=== PATIENT | male | born 1970 | race Caucasian/White ===

== ENCOUNTER 2018-01-17 03:44 | Inpatient (IN) | payer OTHER ==
[~2018-01-17] VITALS: Ht 185.4 cm; Wt 108.5 kg
[~2018-01-17 03:44] MED LIST: ST. JOSEPH ASPI81 M1 PO
--- NOTE | 2018-01-17 12:51 | Admission Core Measures ---
Acute Coronary Syndrome (CM) ACS Core Measures Acute Coronary Syndrome Diagnosis No Congestive Heart Failure (NEW) CHF Core Measures Congestive Heart Failure Diagnosis No Cerebrovascular Accident CVA Core Measures CVA/TIA Diagnosis No Venous Thromboembolism VTE Core Curry (View Protocol) VTE Risk Factors Surgery No Mechanical VTE Prophylaxis d/t N/A MechProphylax Ordered No VTE Pharm Prophylaxis d/t NA PharmProphylax ordered Problem List As ranked by this Provider includes Assessment & Plan 1. Unilateral primary osteoarthritis, right knee HOME MEDS Home Med List Aspirin (Cochran Aspirin) 81 MG TABLET.DR 1 TAB PO DAILY [facility] ( Reported)
[2018-01-17] MEDS ORDERED: ASPIRIN EC325 M2 PO (12:54)
[2018-01-17] MEDS ORDERED: COLACE100 M1 PO (12:54)
[2018-01-17] MEDS ORDERED: MIRALAX17 G1 PO (12:54)
[2018-01-17] MEDS ORDERED: MS CONTIN15 M3 PO (12:54)
[2018-01-17] MEDS ORDERED: DILAUDID2 M1 PO (12:54)
[2018-01-17] MEDS ORDERED: PRILOSEC OTC20 M1 PO (12:54)
--- NOTE | 2018-01-17 12:56 | Patient Discharge Instructions ---
Discharge Instructions General Discharge Information You were seen/treated for: Right knee pain related to unilateral primary osteoarthritis You had these procedures: Right total knee replacement Watch for these problems: Increasing pain despite the use of pain medication Increasing redness, warmth or swelling Drainage of any type from incision Inability to bear weight on operative leg Persistent nausea and vomiting Fever greater than 101.5 degrees Do not soak the wound: Yes No bath, but you may shower: Yes Other wound care: Please keep wound clean and dry. No ointments or lotions of any type on or near incision at any time. No exceptions. Your dressing will be changed by your nurse on the second day after your surgery. Daily dry dressing changes are recommended each day thereafter. Do not soak your wound in a bath or pool at any time until otherwise indicated by your surgeon. You may shower, please dry wound immediately after shower with a clean towel. Special Instructions: Aspirin: You are taking this medication to help prevent blood clot formation. Please take with food to protect your stomach lining. Please take as directed. Constipation: Pain medication can cause constipation. Your surgeon has recommended that you take Colace and miralax each day. You may discontinue this medication if you develop loose stool or diarrhea. If you wish to continue this medication, it is available over the counter. If you are unable to move your bowels after several days, if you are unable to pass gas and are developing bloating, nausea, or vomiting as a result, please contact your doctor. Diet Continue normal diet: Yes Recommended Diet: Regular Acute Coronary Syndrome Inclusion Criteria At DC or during hospital stay patient has or had the following: ACS DIAGNOSIS No Discharge Core Measures Meds if any: Prescribed or Continued at Discharge Meds if any: NOT Prescribed or Continued at Discharge Congestive Heart Failure Inclusion Criteria At DC or during hospital stay patient has or had the following: CHF DIAGNOSIS No Discharge Core Measures Meds if any: Prescribed or Continued at Discharge Meds if any: NOT Prescribed or Continued at Discharge Cerebrovascular accident Inclusion Criteria At DC or during hospital stay patient has or had the following: CVA/TIA Diagnosis No Discharge Core Measures Meds if any: Prescribed or Continued at Discharge Meds if any: NOT Prescribed or Continued at Discharge Venous thromboembolism Inclusion Criteria VTE Diagnosis No VTE Type NONE VTE Confirmed by (Test) NONE Discharge Core Measures - Per Current guidelines, there needs to be overlap - treatment for the first 5 days of Warfarin therapy. - If discharged on Warfarin prior to 5 days of - overlap therapy, the patient will need to be - assessed for post discharge needs including - *Post discharge parental anticoagulation - *Warfarin and/or parental anticoagulation education - *Follow up date to check INR post discharge At least 5 days overlap therapy as Inpatient No Meds if any: Prescribed or Continued at Discharge Note: Overlap Therapy is Warfarin and Anticoagulant Meds if any: NOT Prescribed or Continued at Discharge
--- NOTE | 2018-01-17 12:58 | Surgical Discharge Summary ---
Visit Information Visit Dates Admission Date: 01/17/18 Discharge Date: 01/19/18 History of Present Illness Chief Complaint: Right knee pain related to unilateral primary osteoarthritis Surgical History Pertinent Surgical History: non-contributory Review of Systems: See H&P Hospital Course Course Attending Physician: Kirby Gorman MD Primary Care Physician: Unknown Hospital Course: Patient was admitted to the hospital for an elective total joint replacement. The procedure was tolerated well and patient was transferred to a general surgical floor. Diet was advanced and tolerated. The patient was evaluated and treated by physical therapy. At the time of hospital discharge, the vital signs were stable, neurovascular status was intact, and pain was controlled with the use of oral pain medications. Allergies: Coded Allergies: phenobarbital (RASH 01/13/18) Disposition Summary Disposition Principal Diagnosis: Right knee unilateral primary osteaorthritis Additional Diagnosis: None Discharge Disposition: home health services Discharge Instructions General Discharge Information Code Status: Full Code Patient's Diet: Regular, advance as tolerated Patient's Activity: WBAT Follow-Up Instructions/Appts: Follow up with Dr. Gorman in 6 weeks from date of surgery. Please call office to arrange &/or confirm this appointment. Medications at Discharge Discharge Medications: Stop taking the following medications: Aspirin (Maypearl Aspirin) 81 MG TABLET. ORAL DAILY Start taking the following new medications: Aspirin (Ecotrin*) 325 MG TABLET. 1 Tablet ORAL TWICE DAILY Qty = 60 No Refills Docusate Sodium (Colace) 100 MG CAPSULE 1 Capsule ORAL TWICE DAILY Qty = 14 No Refills Instructions: DISCONTINUE USE IF YOU DEVELOP LOOSE STOOL OR DIARRHEA Polyethylene Glycol 3350 (Miralax) 17 GRAM POWD.PACK 1 Packet ORAL DAILY Qty = 7 No Refills Instructions: dissolve in water, DISCONTINUE USE IF YOU DEVELOP LOOSE STOOL OR DIARRHEA Morphine Sulfate (Ms Contin) 15 MG TABLET.ER 1 Tablet ORAL TWICE DAILY Qty = 6 No Refills Hydromorphone HCl (Dilaudid) 2 MG TABLET 1-2 Tablet ORAL EVERY 4-6 HOURS NEEDED as needed for PAIN Qty = 36 No Refills Omeprazole Magnesium (Prilosec Otc) 20 MG TABLET. 1 Tablet ORAL DAILY Qty = 30 No Refills
--- NOTE | 2018-01-17 17:19 | Operative Report ---
Operative/Inv Procedure Report Surgery Date: 01/17/18 Name of Procedure: Right total knee replacement with computer-aided navigation Pre-Operative Diagnosis: Primary right knee DJD Post-Operative Diagnosis: Same Estimated Blood Loss: 50ml to 100ml Surgeon/Vegetables Cook: Sherif VILA,Kirby Farias Anesthesia: block Operative/Procedure Note Note: Description of Procedure: The patient was taken to the operating room and positively identified. After induction of spinal anesthesia and administration of appropriate pre-operative antibiotics, the patient was positioned supine on the operating room table and all bony prominences were well padded. A well-padded pneumatic tourniquet was placed on the right upper thigh. After performing a surgical timeout, the right lower extremity was prepped and draped in the usual sterile fashion. After exsanguination with Esmarch the tourniquet was inflated to 250mm of mercury. A standard medial parapatellar approach was made to the knee. This was carried down through skin and subcutaneous tissue to the level of the fascia. Meticulous hemostasis was maintained with Bovie electrocautery. The extensor mechanism and patellar retinaculum were opened sharply and the patella was everted. The infrapatellar fat was resected in order to improve exposure. Osteophytes were trimmed from the patella and femoral condyles and the patella was re-everted and tucked laterally. A medial release was performed and the cruciate ligaments were resected. The tibia was then subluxed anteriorly. A tracker support was pinned to the tibial plateau. The tibial plateau was then digitized using the appropriate workflow software. A navigation cutting block was then fastened to the tracker support. Utilizing the adjustments screwdriver , the tibial resection was dialed in for 0 of varus valgus as well as 6 of posterior slope. The cutting block was firmly pinned in place. The tibia cut was then made and all trackers were then removed. Attention was then turned to the femur. A tracker support was pinned to the distal femur and the distal femoral condyles were then digitized. A cutting block was pinned to the tracker support and dialed in for 0 of varus valgus and 2 of flexion. The cutting block was pinned and the distal femoral cut was made. Extension gap was checked and found to be symmetric and appropriate. I'll tracking devices were then removed. The remainder the femoral cuts were then made using a size 5 4-in-1 femoral cutting guide. The tibia was prepared to accept a #5 tibial baseplate. The knee was then trialed with a 13 mm polyethylene insert. The patella was trimmed to accept an A35 patella. This yielded excellent range of motion stability and patellar tracking. All trial components were removed and the knee was copiously irrigated with sterile saline. All components were cemented into place with Appurify Simplex cement. All the components were of the Appurify Triathlon knee system of the above stated sizes. The knee was again irrigated after cementation. The extensor mechanism and patellar retinaculum were repaired using interrupted #1 vicryl suture. The skin was re-approximated with 2-0 vicryl and closed with joycelyn. A sterile dressing was applied, the tourniquet was deflated, the patient was awakened and taken to the recovery room in satisfactory condition.
[2018-01-17 17:30] VITALS: BP 112/82
--- NOTE | 2018-01-17 18:01 | PN- Orthopedic ---
Subjective Subjective: 48 y/o male S/P Right total knee arthroplasty he is awake and alert without complaints of pain Review of Systems: no SOB, no Chest pain Objective Vital Signs and I&Os VSS Physical Exam: alert and oriented VSS chest - CTA symmetric Heart -RRR without MRG Abd -soft without distention nontender right knee- dressings -CDI without dranaige calves soft bialterally distal pulses intact Assessment/Plan Assessment/Plan 48 y/o S/P right total knee doing well without complaints DVT prophalaxis - ASA advance diet as toalrated PT WBAT Core Measures Venous Thromboembolism VTE Risk Factors Surgery No Mechanical VTE Prophylaxis d/t N/A MechProphylax Ordered No VTE Pharm Prophylaxis d/t NA PharmProphylax ordered
[2018-01-17 19:17] VITALS: BP 126/80
[2018-01-17 21:30] VITALS: BP 122/80
[2018-01-18 00:05] VITALS: BP 130/78
[2018-01-18 04:04] VITALS: BP 128/86
--- NOTE | 2018-01-18 07:17 | PN- Student ---
Angie Fiore 01/18/18 0708: Subjective Subjective: Pt reports pain is at a minimum this morning at about 2/10. Pain was worse during the night but was relieved with pain medication. Reports being nauseous last night and had one episode of vomitus at about 6 this morning. Nausea has since resolved with Zofran. Tolerated regular diet last night. Pt has not ambulated yet post-operatively. Voiding without difficulty. Denies any CP, SOB, difficulty breathing, fever, headache or dizziness. Objective Objective: Vitals: see emr General: Middle aged male, lying in bed, appears comfortable, NAD. Cardio: Reg rate and rhythm. S1 and S2. No murmurs, rubs or gallops. Pulm: Clear breath sounds with no wheezes, rhonchi or rales. Abdomen: Normoactive bowel sounds, soft, non-tender, non-distended. Extremities: Dressing in place over right leg. ALPs in place bilaterally. Gross motor and sensation intact and equal bilaterally. 5/5 plantar and dorsiflexion bilaterally. Calves are soft and non-tender bilaterally. Results Results: Laboratory Tests 01/18/18 0635: Sodium Pending, Potassium Pending, Chloride Pending, Carbon Dioxide Pending, Anion Gap Pending, BUN Pending, Creatinine Pending, BUN/Creatinine Ratio Pending , CBC w Diff Pending, WBC Pending, RBC Pending, Hgb Pending, Hct Pending, MCV Pending, MCH Pending, MCHC Pending, RDW Pending, Plt Count Pending, MPV Pending Assessment/Plan Assessment: 48 y/o POD #1 s/p right total knee replacement secondary to osteoarthritis. Pt's pain is being well controlled and vital signs are stable. Nause has since resolved after 1 episode of vomitus. Pt due to ambulate. Plan: Continue with pain control as needed. Asa 325 mg bid for DVT ppx. Physical therapy to see the patient. Regular diet as tolerated. IVF running. ALPs in place for DVT ppx. Continue with d/c planning. Will discuss with Dr Gorman and surgical PAs. Lima Salas 01/18/18 2008: Addendum Note Addendum Agree with PA-S note above. Patient admits to minimal pain that is controlled. Has not yet worked with PT but planning for home with PT services. Did have episode of emesis this am but no further episodes since and no current nausea. Plan for PT this am. DVT ppx with ASA 325 mg BID. Pain control prn. Will plan to d/c IVF if able to tolerate diet this am. Discharge planning.
[2018-01-18 08:12] VITALS: BP 128/80
[2018-01-18 08:27] LABS: ABSOLUTE BASOPHIL COUNT 0 /CUMM (0.0-0.2); ABSOLUTE EOSINOPHIL COUNT 0.1 /CUMM (0.0-0.7); ABSOLUTE GRANULOCYTE CT 9.6 /CUMM (1.4-6.5); ABSOLUTE LYMPH COUNT 1.8 /CUMM (1.2-3.4); ABSOLUTE MONOCYTE COUNT 0.9 /CUMM (0.10-0.60); BASOPHIL % 0.3 % (0.0-2.0); EOSINOPHIL % 0.9 % (0-5); GRANULOCYTE % 77.6 % (42.2-75.2); MEAN CORPUSCULAR HGB 29.8 PG (27.0-31.0); MEAN CORPUSCULAR HGB CONC 33.9 G/DL (33.0-37.0); MEAN CORPUSCULAR VOLUME 87.9 FL (80.0-94.0); MEAN PLATELET VOLUME 9.7 FL (7.4-10.4); PLATELET COUNT 237 /CUMM (130-400); RBC DISTRIBUTION WIDTH 13.2 % (11.5-14.5); RED BLOOD CELL CT 4.32 /CUMM (4.70-6.10); WHITE BLOOD CELL COUNT 12.4 /CUMM (4.8-10.8)
[2018-01-18 14:39] VITALS: BP 110/76
[2018-01-18 23:01] VITALS: BP 130/80
[2018-01-19 06:43] VITALS: BP 144/76
--- NOTE | 2018-01-19 07:30 | PN- Student ---
Angie Fiore 01/19/18 2221: Subjective Subjective: Pt feeling well this am. Continues to have pain localized in his right leg. Ambulated without difficulty yesterday with PT but had significant pain afterwards. Nausea has resolved no episodes of vomitus after yesterday morning's episode. He is tolerating a regular diet, voiding without diffculty and having flatus. Denies any CP, SOB, difficulty breathing, headahce, dizziness, numbness or tingling. Objective Objective: Vitals: See EMR General: Middle aged male, lying in bed, appears comfortable, NAD. Cardio: Regular rate and rhythm. S1 and S2. No murmurs, rubs or gallops. Pulm: Clear breath sounds with no wheezes, rhonchi or rales. Abdomen: Normoactive bowel sounds. Soft, non-tender, non-distended. Extremities: Dressing in place over right leg. Gross motor and sensation intact and equal bilaterally. 5/5 plantar and dorsiflexion bilaterally. palpable DP pulses. Results Results: Laboratory Tests 01/18/18 0635: Anion Gap 12, Estimated GFR > 60, BUN/Creatinine Ratio 18.6, CBC w Diff NO MAN DIFF REQ, RBC 4.32 L, MCV 87.9, MCH 29.8, MCHC 33.9, RDW 13.2, MPV 9.7, Gran % 77.6 H, Lymphocytes % 14.3 L, Monocytes % 6.9, Eosinophils % 0.9, Basophils % 0.3, Absolute Granulocytes 9.6 H, Absolute Lymphocytes 1.8, Absolute Monocytes 0.9 H, Absolute Eosinophils 0.1, Absolute Basophils 0 Assessment/Plan Assessment: 48 y/o M POD#2 s/p right total knee arthroplasty for OA of the right knee. Pt's vital signs are stable and he remains afebrile. Pain is moderately controlled but PT still taking IV pain medications. Plan: Continue with pain control as needed, PO pain control preferred. Asa 325 mg bid for DVT ppx. PT has seen and cleared patient Regular diet as tolerated. ALPs in place for DVT ppx. Continue with d/c planning. Pt to go home with Physical therapy services. Will discuss with Dr Gorman and surgical PAs. Donna Mendez 01/19/18 1101: Objective Objective: DRESSING CHANGED, INCISION IS CLEAN AND DRY, JUAN MANUEL IN PLACE, NO DRAIANGE OR SIGNS OF INFECTION. Assessment/Plan Plan: AGREE WITH ABOVE WBAT [id number] BID PLAN FOR HOME TODAY WITH [facility]
== END 2018-01-19 13:18 | disposition home health service (06) | DRG 470 ==
LOC: SDA 03:44 → ENRESERV 16:18 → ENTRNSPT 16:45 → EDTRNSPT 16:50 → EDTRNSPTSTS 16:50 → 2NA 17:08 → CMPTRNSPT 17:20 → ENPENDDIS 01-19 11:53 → ENTRNSPT 01-19 12:43 → EDTRNSPTSTS 01-19 12:57 → EDTRNSPT 01-19 12:57 → CMPTRNSPT 01-19 13:02 → 2NA 01-19 13:18
PROVIDERS: Nurse Practitioner
PROC: 0SRC0J9 Replacement of Right Knee Joint with Synthetic Substitute, Cemented, Open Approach (ICD-10-PCS; principal; 2018-01-17)
PROC: 8E0YXBZ Computer Assisted Procedure of Lower Extremity (ICD-10-PCS; principal; 2018-01-17)
PROC: 3E0T3BZ Introduction of Anesthetic Agent into Peripheral Nerves and Plexi, Percutaneous Approach (ICD-10-PCS; principal; 2018-01-17)
DX: M17.11 Unilateral primary osteoarthritis, right knee (principal); E78.5 Hyperlipidemia, unspecified; Z88.8 Allergy status to other drugs, medicaments and biological substances; Z96.643 Presence of artificial hip joint, bilateral; I25.2 Old myocardial infarction; Z87.820 Personal history of traumatic brain injury
CPT/HCPCS: 2NASP; 36592; 82436; 97110-GO; 97116-GO; 97161-GP; C1713; C9290; J0131; J0690; J2405; J2550; J7042; Q2036